=== PATIENT | male | born 1975 | race Caucasian/White ===

== ENCOUNTER 2022-01-02 18:35 | Emergency (ER) | payer OTHER ==
[2022-01-02] MEDS ORDERED: EPIPEN 2-P0.3 MG/0.3 IM (19:58)
[2022-01-02] MEDS ORDERED: MEDROL 4MG DOSEP4 MG PO (19:59)
[2022-01-03] MEDS ORDERED: PROTONIX 40MG T40 MG PO (08:27)
[2022-01-03] MEDS ORDERED: VIIBRYD20 MG PO (08:28)
[2022-01-03] MEDS ORDERED: EPIPEN0.3 MG/0.3 IM/IVP (08:31)
[2022-01-03] MEDS ORDERED: DICLOFENAC SODI75 MG PO (08:32)
[2022-01-03] MEDS ORDERED: SINGULAIR10 MG PO (08:36)
== END 2022-01-02 20:11 | disposition home or self-care (01) ==
LOC: FER 18:35
DX: T78.40XA Allergy, unspecified, initial encounter (principal); J45.909 Unspecified asthma, uncomplicated; Z91.038 Other insect allergy status
CPT/HCPCS: J0171; J1200; J2930; J7030

== ENCOUNTER 2022-01-02 21:14 | Inpatient (IN) | payer OTHER ==
[~2022-01-02] VITALS: Ht 177.8 cm; Wt 96.0 kg
[~2022-01-02 21:14] MED LIST: EPIPEN 2-P0.3 MG/0.3 IM; MEDROL 4MG DOSEP4 MG PO
[2022-01-03 01:14] LABS: BASOPHIL 0.6 % (0-2); EOSINOPHIL 1.8 % (0-5); HCT 50.2 % (42.0-52.0); HGB 16.4 g/dl (13.2-18.0); MCH 30.5 pg (25.0-31.0); MCHC 32.7 g/dL (32.0-36.0); MCV 93.3 fL (78.0-100.0); MONOCYTE 10.8 % (0-12); MPV 10.2 fL (6.0-9.5); NEUTROPHIL 44.5 % (41-80); NRBC 0; PLT 335 K/uL (150-400); RBC 5.38 M/uL (4.70-6.00); RDW 14.2 % (11.5-14.0); WBC 11.7 K/uL (4.0-10.5)
[2022-01-03 01:25] LABS: ALBUMIN 4.6 g/dL (3.4-5.0); BILIRUBIN - TOTAL 0.4 mg/dL (0.2-1.0); BUN/CREAT RATIO (CALC) 12.6 RATIO; C-REACTIVE PROTEIN 1.2 mg/dL (<=0.90); CREATININE 1.11 mg/dL (0.67-1.17); GLOBULIN (CALCULATION) 3.6 g/dL; POTASSIUM 3.8 mmol/L (3.5-5.1); TOTAL PROTEIN 8.2 g/dL (6.4-8.2)
[2022-01-03] MEDS ORDERED: PROTONIX 40MG T40 MG PO (08:27)
[2022-01-03] MEDS ORDERED: VIIBRYD20 MG PO (08:28)
[2022-01-03] MEDS ORDERED: EPIPEN0.3 MG/0.3 IM/IVP (08:31)
[2022-01-03] MEDS ORDERED: DICLOFENAC SODI75 MG PO (08:32)
[2022-01-03] MEDS ORDERED: SINGULAIR10 MG PO (08:36)
[2022-01-04] MEDS ORDERED: DUONEB 2.5-0.5M1 AMP NEB (07:35)
[2022-01-04] MEDS ORDERED: PREDNISONE 20MG20 MG PO (07:35)
[2022-01-04] MEDS ORDERED: PEPCID AC20 MG PO (07:35)
[2022-01-04] MEDS ORDERED: EPIPEN0.3 MG/0.3 IM (07:35)
[2022-01-04] MEDS ORDERED: VENTOLIN HFA IN18 GM INH (07:46)
[2022-01-05 03:10] LABS: HBSAG SCREEN Negative (Negative); HEP A AB, IGM Negative (Negative); HEP B CORE AB, IGM Negative (Negative); HEP C VIRUS AB <0.1 (0.0-0.9)
== END 2022-01-04 09:05 | disposition home or self-care (01) | DRG 916 ==
LOC: FER 21:14 → FICU 01-03 01:21
PROVIDERS: Family Medicine; Nurse Practitioner; ADMIT Internal Medicine
PROC: 3E033XZ Introduction of Vasopressor into Peripheral Vein, Percutaneous Approach (ICD-10-PCS; principal; 2022-01-02)
DX: T78.09XA Anaphylactic reaction due to other food products, initial encounter (principal); Z20.822 Contact with and (suspected) exposure to COVID-19; F41.9 Anxiety disorder, unspecified; J45.909 Unspecified asthma, uncomplicated; N18.2 Chronic kidney disease, stage 2 (mild); T38.0X5A Adverse effect of glucocorticoids and synthetic analogues, initial encounter; F32.A Depression, unspecified; R73.03 Prediabetes; K21.9 Gastro-esophageal reflux disease without esophagitis; G47.33 Obstructive sleep apnea (adult) (pediatric); R74.8 Abnormal levels of other serum enzymes; Z79.899 Other long term (current) drug therapy
CPT/HCPCS: 36415; 71045; 80053; 80074; 83036; 83605; 85025; 86140; 94010; 94640; 94762; 96372; J0171; J1200; J2060; J2405; J2930; J3105; J3475; J7030; J7050; U0002

== ENCOUNTER 2022-01-31 15:15 | Emergency (ER) | payer OTHER ==
[~2022-01-31 15:15] MED LIST changes: +DICLOFENAC SODI75 MG PO; +DUONEB 2.5-0.5M1 AMP NEB; +EPIPEN0.3 MG/0.3 IM; +EPIPEN0.3 MG/0.3 IM/IVP; +PEPCID AC20 MG PO; +PREDNISONE 20MG20 MG PO; +PROTONIX 40MG T40 MG PO; +SINGULAIR10 MG PO; +VENTOLIN HFA IN18 GM INH; +VIIBRYD20 MG PO
[2022-01-31] MEDS ORDERED: PREDNISONE 20MG20 MG PO (21:41)
== END 2022-01-31 21:52 | disposition home or self-care (01) ==
LOC: FER 15:15
DX: T78.40XA Allergy, unspecified, initial encounter (principal); Z91.038 Other insect allergy status
CPT/HCPCS: J1200; J2930